=== PATIENT | female | born 1985 | race American Indian/Alaskan Native ===

== ENCOUNTER 2017-11-07 17:19 | Emergency (ER) | payer MEDICARE ==
[2017-11-07 17:50] LABS: HCG Qualitative,Urine Negative (Negative)
[2017-11-07 17:56] LABS: Bilirubin,Urine NEG (Negative); Blood,Urine NEG (Negative); Color,Urine Yellow (Yellow); Mucus,Urine FEW /HPF; Protein,Urine <15 mg/dL mg/dL (Negative); Urobilinogen,Urine < 2.0 mg/dL (<2.0)
[2017-11-07 18:01] LABS: Amphetamine Screen,Urine PRESUMPTIVE NEGATIVE; Benzodiazepines Screen,Urine PRESUMPTIVE NEGATIVE; Cannabinoid Screen,Urine PRESUMPTIVE NEGATIVE; Cocaine Screen,Urine PRESUMPTIVE NEGATIVE; Methadone Screen,Urine PRESUMPTIVE NEGATIVE; Opiate Screen,Urine PRESUMPTIVE NEGATIVE
[2017-11-07 18:37] LABS: Basophils % (Auto) 0.6 % (0.0-1.8); Eosinophils # (Auto) 0.1 K/mm3 (0.0-0.4); Eosinophils % (Auto) 1.1 % (0.0-4.3); Hematocrit 35.8 % (30.3-42.9); Hemoglobin 12.2 gm/dl (10.1-14.3); Lymphocytes # (Auto) 2.8 K/mm3 (1.2-5.4); Lymphocytes % (Auto) 36.1 % (13.4-35.0); Mean Corpuscular HGB Conc 34 % (30-34); Mean Corpuscular Hemoglobin 29 pg (28-32); Mean Corpuscular Volume 84 fl (79-97); Monocytes # (Auto) 0.5 K/mm3 (0.0-0.8); Monocytes % (Auto) 6.4 % (0.0-7.3); Platelet Count 278 K/mm3 (140-440); Red Blood Count 4.28 M/mm3 (3.65-5.03); Red Cell Distribution Width 14.4 % (13.2-15.2)
[2017-11-07 18:51] LABS: BUN/Creatinine Ratio 27; Blood Urea Nitrogen 16 mg/dL (7-17); Calcium 9.1 mg/dL (8.4-10.2); Hemolysis Index 3
[2017-11-07] MEDS ORDERED: MACROBID PO ONE (20:37)
[2017-11-07] MEDS ORDERED: K-DUR PO ONE (20:37)
[2017-11-07 21:03] VITALS: BP 133/81
--- NOTE | 2017-11-07 21:09 | Emergency Department Report ---
HPI - General Chief Complaint: Medical Clearance Time Seen by Provider: 11/07/17 20:37 - HPI HPI: 32-year-old afterward female presents to the emergency department with complaint of depression, anxiety and "cloudy thoughts." The patient is hoping to be placed inpatient for [facility]. The patient is from [place] and was sent to [facility] from a hospital in [place] secondary to some depression and/ or previous psychiatric problems. After [facility], the patient was placed into a transitional home and just recently has been discharged from there. Patient denies any auditory or visual hallucinations or any suicidal or homicidal ideations. She does have a history of bipolar disorder, schizophrenia and depression. She has a medical history of hypertension and diabetes. The patient is on metformin, Seroquel and Invega, and says she takes them compliantly. ED Past Medical Hx - Past Medical History Hx Hypertension: Yes Hx Diabetes: Yes Hx Seizures: Yes Hx Psychiatric Treatment: Yes (bipolar,schizophrenia,depression) - Surgical History Additional Surgical History: - Social History Smoking Status: Never Smoker Substance Use Type: None - Medications Home Medications: Home Medications Medication Instructions Recorded Confirmed Last Taken Type Nitrofurantoin Monohyd/M-Cryst 100 mg PO BID #14 capsule 11/07/17 Unknown Rx [Macrobid 100 mg Capsule] ED Review of Systems ROS: Stated complaint: DEPRESSION Other details as noted in HPI Comment: All other systems reviewed and negative Constitutional: denies: chills, fever Eyes: denies: eye pain, eye discharge, vision change ENT: denies: ear pain, throat pain Respiratory: denies: cough, shortness of breath, wheezing Cardiovascular: denies: chest pain, palpitations Gastrointestinal: denies: abdominal pain, nausea, diarrhea Genitourinary: denies: urgency, dysuria, discharge Musculoskeletal: denies: back pain, joint swelling, arthralgia Skin: denies: rash, lesions Neurological: denies: headache, weakness, paresthesias Psychiatric: anxiety, depression. denies: auditory hallucinations, visual hallucinations, homicidal thoughts, suicidal thoughts Physical Exam - Physical Exam Vital Signs: Vital Signs 11/07/17 11/07/17 17:25 21:03 Temperature 98.6 F Pulse Rate 97 H 74 Respiratory 16 14 Rate Blood Pressure 140/76 Blood Pressure 133/81 [Left] O2 Sat by Pulse 97 98 Oximetry ED Course Vital Signs 11/07/17 11/07/17 17:25 21:03 Temperature 98.6 F Pulse Rate 97 H 74 Respiratory 16 14 Rate Blood Pressure 140/76 Blood Pressure 133/81 [Left] O2 Sat by Pulse 97 98 Oximetry ED Medical Decision Making - Lab Data Result diagrams: 11/07/17 17:56 11/07/17 17:56 Critical care attestation.: If time is entered above; I have spent that time in minutes in the direct care of this critically ill patient, excluding procedure time. ED Disposition Clinical Impression: Medical clearance for psychiatric admission Depression Qualifiers: Depression Type: unspecified Qualified Code(s): F32.9 - Major depressive disorder, single episode, unspecified UTI (urinary tract infection) Qualifiers: Urinary tract infection type: acute cystitis Hematuria presence: without hematuria Qualified Code(s): N30.00 - Acute cystitis without hematuria Disposition: TO HOME OR SELFCARE Is pt being admited?: No Condition: Stable Instructions: Medical Clearance for Psychiatric Care (ED), Urinary Tract Infection in Women (ED), Depression (ED) Additional Instructions: Please return to [facility] and show them your medical clearance for possible readmission to their facility. However [facility] will make the decision on whether or not they readmit due to the facility. Otherwise, please follow up with a primary care physician and/or psychiatrist as soon as you're able to do so. Return to emergency Department with any worsening of your symptoms, thoughts of harming yourself or others, or with any acute distress. Prescriptions: Nitrofurantoin Monohyd/M-Cryst [Macrobid 100 mg Capsule] 100 mg PO BID #14 capsule Referrals: PRIMARY CAREMD [Primary Care Provider] - [facility] [Outside] - 3-5 Days [facility] [Outside] - 3-5 Days Time of Disposition: 21:45
== END 2017-11-07 22:05 | disposition home or self-care (01) ==
LOC: ED 17:19
DX: F32.9 Major depressive disorder, single episode, unspecified (principal); N39.0 Urinary tract infection, site not specified; I10 Essential (primary) hypertension; E11.9 Type 2 diabetes mellitus without complications; F20.9 Schizophrenia, unspecified
CPT/HCPCS: 36415; 80048; 80307; 81001; 81025; 85025; 99283; G0480; 80320